=== PATIENT | male | born 1960 | race African-American/Black ===

== ENCOUNTER 2022-03-09 14:53 | Inpatient (IN) | payer OTHER ==
[2022-03-09 19:17] VITALS: BMI 30.7
[2022-03-09] MEDS ORDERED: ACETAMINOPHEN 325 MG TABLET (FP) PO PRN ×2 (21:43)
[2022-03-09] MEDS ORDERED: P-EPHED 60MG/TRIPROLIDI 2.5MG TABLET PO PRN (21:43)
[2022-03-09] MEDS ORDERED: BISMUTH SUBSALICYLATE 524 MG/30 ML PO PRN (21:43)
[2022-03-09] MEDS ORDERED: guaiFENesin 200 MG/10 ML 10 ML UNIT-DOSE CUPS PO PRN (21:43)
[2022-03-09] MEDS ORDERED: MAGNESIUM CITRATE 300 ML BOTTLE PO PRN (21:43)
[2022-03-09] MEDS ORDERED: clonazePAM 0.5 MG ODT TABLETS SL PRN (21:43)
[2022-03-09] MEDS ORDERED: BENZOCAINE/MENTHOL (CHLORASEPTIC ) LOZENGE MM PRN (21:43)
[2022-03-09] MEDS ORDERED: DICYCLOMINE HCL 10 MG CAPSULE PO PRN (21:43)
[2022-03-09] MEDS ORDERED: LOPERAMIDE HCL 2 MG CAPSULE PO PRN (21:43)
[2022-03-09] MEDS ORDERED: MAGNESIUM HYDROX 2400MG/30ML ORAL SUSPENSION 30 ML CUP PO PRN (21:43)
[2022-03-09] MEDS ORDERED: PROCHLORPERAZINE MALEATE 5 MG TABLET PO PRN (21:43)
[2022-03-09] MEDS ORDERED: NALOXONE HCL 0.4 MG/ML VIAL IM PRN (21:43)
[2022-03-09] MEDS ORDERED: cloNIDine HCL 0.1 MG TABLET PO PRN (21:43)
[2022-03-09] MEDS ORDERED: methaDONE HCL 10 MG TABLET (FOR DETOX USE ONLY) PO ONE (21:43)
[2022-03-09] MEDS ORDERED: MAG HYDROX/AL HYDROX/SIMETH 30 ML UNIT-DOSE CUP PO PRN (21:43)
[2022-03-09] MEDS ORDERED: IBUPROFEN 400 MG TABLET (FP) PO PRN (21:43)
[2022-03-10] MEDS ORDERED: methaDONE HCL 10 MG TABLET (FOR DETOX USE ONLY) PO ONE ×2 (02:05→10:00)
[2022-03-10] MEDS: methaDONE HCL 10 MG TABLET (FOR DETOX USE ONLY) PO ONE (03:15)
[2022-03-10] MEDS: MELATONIN 5 MG TABLETS PO SCH ×2 (03:22→22:23)
[2022-03-10] MEDS: THIAMINE HCL 100 MG TABLET (FP) PO SCH ×2 (03:22→22:23)
[2022-03-10] MEDS: PRENATAL VITAMINS W/ FOLIC ACID TABLET (FP) PO SCH (10:24)
[2022-03-10] MEDS: METHOCARBAMOL 500 MG TABLET PO PRN ×2 (10:26→22:25)
[2022-03-10] MEDS ORDERED: LORazepam 0.5 MG TABLET PO PRN (10:38)
[2022-03-10] MEDS: LORazepam 1 MG TABLET PO SCH ×3 (11:34→22:23)
[2022-03-10 16:20] LABS: PH,URINE 7.5 (5.0-8.0); URINE APPEARANCE CLOUDY; URINE BILIRUBIN NEGATIVE (NEGATIVE); URINE COLOR YELLOW; URINE GLUCOSE (UA) NEGATIVE (NEGATIVE); URINE KETONE NEGATIVE (NEGATIVE); URINE LEUK ESTERASE NEGATIVE (NEGATIVE); URINE NITRITE NEGATIVE (NEGATIVE); URINE PROTEIN NEGATIVE (NEGATIVE); URINE UROBILINOGEN 0.2 mg/dL (0.2-1.0)
[2022-03-11] MEDS: LORazepam 0.5 MG TABLET PO SCH ×4 (05:51→22:16)
[2022-03-11] MEDS: PRENATAL VITAMINS W/ FOLIC ACID TABLET (FP) PO SCH (10:28)
[2022-03-11] MEDS: MELATONIN 5 MG TABLETS PO SCH (22:17)
[2022-03-11] MEDS: THIAMINE HCL 100 MG TABLET (FP) PO SCH (22:17)
[2022-03-11] MEDS: METHOCARBAMOL 500 MG TABLET PO PRN (22:18)
[2022-03-12 00:10] LABS: SARS-CoV-2 NAA Not Detected (Not Detected)
[2022-03-12] MEDS ORDERED: LORazepam 0.5 MG TABLET PO ONE (05:00)
[2022-03-12] MEDS ORDERED: methaDONE HCL 10 MG TABLET (FOR DETOX USE ONLY) ONE (09:10)
[2022-03-12] MEDS: PRENATAL VITAMINS W/ FOLIC ACID TABLET (FP) PO SCH (10:21)
[2022-03-12] MEDS: amLODIPine BESYLATE 10 MG TABLET (FP) PO SCH (11:06)
[2022-03-12 11:30] LABS: HEMATOCRIT 35.8 % (35.4-49); HEMOGLOBIN 11.7 GM/dL (11.7-16.9); MCH 26.7 pg (25.7-33.7); MCHC 32.7 g/dl (32.0-35.9); MEAN CELL VOLUME 81.6 fl (80-96); MEAN PLT VOLUME 7.6 fl (7.5-11.1); PLATELET COUNT 243 10^3/uL (134-434); RBC 4.39 M/mm3 (4.00-5.60); RDW 12.6 % (11.9-15.9); WHITE BLOOD COUNT 5.7 K/mm3 (4.0-10.0)
[2022-03-12 11:49] LABS: ALBUMIN 3.6 g/dl (3.4-5.0); BLOOD UREA NITROGEN 8.9 mg/dL (7-18); CALCIUM 8.8 mg/dL (8.5-10.1)
[2022-03-12 11:52] LABS: TOT PROT 6.9 g/dl (6.4-8.2)
[2022-03-12 11:54] LABS: BILIRUBIN,TOTAL 0.8 mg/dL (0.2-1)
[2022-03-12] MEDS: ATORVASTATIN CA 40 MG TABLET (FP) PO SCH (22:40)
[2022-03-12] MEDS: MELATONIN 5 MG TABLETS PO SCH (22:40)
[2022-03-12] MEDS: THIAMINE HCL 100 MG TABLET (FP) PO SCH (22:40)
[2022-03-12] MEDS: METHOCARBAMOL 500 MG TABLET PO PRN (22:41)
[2022-03-12] MEDS: hydrOXYzine PAMOATE 25 MG CAPSULE (FP) PO PRN (22:41)
[2022-03-12] MEDS: cloNIDine HCL 0.1 MG TABLET PO PRN (22:41)
[2022-03-13] MEDS: amLODIPine BESYLATE 10 MG TABLET (FP) PO SCH (10:25)
[2022-03-13] MEDS: PRENATAL VITAMINS W/ FOLIC ACID TABLET (FP) PO SCH (10:25)
[2022-03-13] MEDS: methaDONE HCL 10 MG TABLET (FOR DETOX USE ONLY) PO ONE (10:26)
[2022-03-13] MEDS: ASCORBIC ACID 500 MG TABLET (FP) PO SCH (10:26)
[2022-03-13] MEDS: hydrOXYzine PAMOATE 25 MG CAPSULE (FP) PO PRN (19:35)
[2022-03-13] MEDS: METHOCARBAMOL 500 MG TABLET PO PRN (19:35)
[2022-03-13] MEDS: THIAMINE HCL 100 MG TABLET (FP) PO SCH (22:28)
[2022-03-13] MEDS: cloNIDine HCL 0.1 MG TABLET PO PRN (22:28)
[2022-03-13] MEDS: ATORVASTATIN CA 40 MG TABLET (FP) PO SCH (22:28)
[2022-03-13] MEDS: MELATONIN 5 MG TABLETS PO SCH (22:28)
[2022-03-14] MEDS: amLODIPine BESYLATE 10 MG TABLET (FP) PO SCH (10:14)
[2022-03-14] MEDS: PRENATAL VITAMINS W/ FOLIC ACID TABLET (FP) PO SCH (10:14)
[2022-03-14] MEDS: ASCORBIC ACID 500 MG TABLET (FP) PO SCH (10:45)
[2022-03-14 13:11] VITALS: BP 123/77; PULSE 92; TEMP 98.4
== END 2022-03-14 13:00 | disposition other institution (70) | DRG 773 ==
LOC: YASAS 14:53 → Y3N 23:25
PROVIDERS: ADMIT Allergy & Immunology; ATTEND Allergy & Immunology
PROC: HZ2ZZZZ Detoxification Services for Substance Abuse Treatment (ICD-10-PCS; principal; 2022-03-09)
DX: F11.23 Opioid dependence with withdrawal (principal); F10.230 Alcohol dependence with withdrawal, uncomplicated; I10 Essential (primary) hypertension; E78.5 Hyperlipidemia, unspecified; Z87.891 Personal history of nicotine dependence; Z86.11 Personal history of tuberculosis; Z56.0 Unemployment, unspecified; Z59.00 Homelessness unspecified
CPT/HCPCS: 36415; 71046-TC-FY; 80053; 81003; 85027; 86780; 93005; 93010; C9803-CS; J0735; U0003; U0005

== ENCOUNTER 2022-03-14 13:24 | Inpatient (IN) | payer OTHER ==
[2022-03-14] MEDS ORDERED: BENZOCAINE/MENTHOL (CHLORASEPTIC ) LOZENGE MM PRN (16:57)
[2022-03-14] MEDS ORDERED: P-EPHED 60MG/TRIPROLIDI 2.5MG TABLET PO PRN (16:57)
[2022-03-14] MEDS ORDERED: ACETAMINOPHEN 325 MG TABLET (FP) PO PRN (16:57)
[2022-03-14] MEDS ORDERED: MAG HYDROX/AL HYDROX/SIMETH 30 ML UNIT-DOSE CUP PO PRN (16:57)
[2022-03-14] MEDS ORDERED: guaiFENesin 200 MG/10 ML 10 ML UNIT-DOSE CUPS PO PRN (16:57)
[2022-03-14] MEDS ORDERED: NICOTINE 10 MG CARTRIDGE (INHALER) IH PRN (16:57)
[2022-03-14] MEDS ORDERED: IBUPROFEN 400 MG TABLET (FP) PO PRN (16:57)
[2022-03-14] MEDS ORDERED: MAGNESIUM CITRATE 300 ML BOTTLE PO PRN (16:57)
[2022-03-14] MEDS ORDERED: LOPERAMIDE HCL 2 MG CAPSULE PO PRN (16:57)
[2022-03-14] MEDS: THIAMINE HCL 100 MG TABLET (FP) PO SCH (21:22)
[2022-03-14] MEDS: MELATONIN 5 MG TABLETS PO SCH (21:22)
[2022-03-14] MEDS: ATORVASTATIN CA 40 MG TABLET (FP) PO SCH (21:22)
[2022-03-14] MEDS: MAGNESIUM HYDROX 2400MG/30ML ORAL SUSPENSION 30 ML CUP PO PRN (21:23)
[2022-03-15] MEDS ORDERED: PRENATAL VITAMINS W/ FOLIC ACID TABLET (FP) PO SCH (10:00)
[2022-03-15] MEDS: amLODIPine BESYLATE 10 MG TABLET (FP) PO SCH (10:19)
[2022-03-15] MEDS: NICOTINE 7 MG/24 HOURS TOPICAL PATCH TD SCH (10:19)
[2022-03-15] MEDS: ASCORBIC ACID 500 MG TABLET (FP) PO SCH (10:19)
[2022-03-15 11:33] LABS: HIV INTERPRETATION NEGATIVE (NEGATIVE)
[2022-03-15] MEDS: LIDOCAINE 5% TOPICAL PATCH TP SCH (16:00)
[2022-03-15] MEDS: ATORVASTATIN CA 40 MG TABLET (FP) PO SCH (21:49)
[2022-03-15] MEDS: LIDOCAINE PATCH REMOVAL MC SCH (21:49)
[2022-03-15] MEDS: METHOCARBAMOL 500 MG TABLET PO PRN (21:49)
[2022-03-15] MEDS: hydrOXYzine PAMOATE 25 MG CAPSULE (FP) PO PRN (21:50)
[2022-03-15] MEDS: THIAMINE HCL 100 MG TABLET (FP) PO SCH (21:50)
[2022-03-15] MEDS: MELATONIN 5 MG TABLETS PO SCH (21:50)
[2022-03-16] MEDS: LIDOCAINE 5% TOPICAL PATCH TP SCH (09:50)
[2022-03-16] MEDS: NICOTINE 7 MG/24 HOURS TOPICAL PATCH TD SCH (09:51)
[2022-03-16] MEDS: ASCORBIC ACID 500 MG TABLET (FP) PO SCH (09:52)
[2022-03-16] MEDS: amLODIPine BESYLATE 10 MG TABLET (FP) PO SCH (09:52)
[2022-03-16] MEDS: LIDOCAINE PATCH REMOVAL MC SCH (21:31)
[2022-03-16] MEDS: ATORVASTATIN CA 40 MG TABLET (FP) PO SCH (21:31)
[2022-03-16] MEDS: MELATONIN 5 MG TABLETS PO SCH (21:32)
[2022-03-16] MEDS: THIAMINE HCL 100 MG TABLET (FP) PO SCH (21:32)
[2022-03-17] MEDS: LIDOCAINE 5% TOPICAL PATCH TP SCH (10:07)
[2022-03-17] MEDS: amLODIPine BESYLATE 10 MG TABLET (FP) PO SCH (10:07)
[2022-03-17] MEDS: NICOTINE 7 MG/24 HOURS TOPICAL PATCH TD SCH (10:08)
[2022-03-17] MEDS: ASCORBIC ACID 500 MG TABLET (FP) PO SCH (10:08)
[2022-03-17] MEDS: THIAMINE HCL 100 MG TABLET (FP) PO SCH (21:10)
[2022-03-17] MEDS: LIDOCAINE PATCH REMOVAL MC SCH (21:10)
[2022-03-17] MEDS: ATORVASTATIN CA 40 MG TABLET (FP) PO SCH (21:10)
[2022-03-17] MEDS: MELATONIN 5 MG TABLETS PO SCH (21:10)
[2022-03-18] MEDS: METHOCARBAMOL 500 MG TABLET PO PRN ×2 (00:05→21:06)
[2022-03-18] MEDS: hydrOXYzine PAMOATE 25 MG CAPSULE (FP) PO PRN ×2 (00:06→21:06)
[2022-03-18] MEDS: amLODIPine BESYLATE 10 MG TABLET (FP) PO SCH (09:55)
[2022-03-18] MEDS: ASCORBIC ACID 500 MG TABLET (FP) PO SCH (09:56)
[2022-03-18] MEDS: LIDOCAINE 5% TOPICAL PATCH TP SCH (09:56)
[2022-03-18] MEDS: NICOTINE 7 MG/24 HOURS TOPICAL PATCH TD SCH (09:56)
[2022-03-18] MEDS: MELATONIN 5 MG TABLETS PO SCH (21:06)
[2022-03-18] MEDS: THIAMINE HCL 100 MG TABLET (FP) PO SCH (21:06)
[2022-03-18] MEDS: LIDOCAINE PATCH REMOVAL MC SCH (21:06)
[2022-03-18] MEDS: ATORVASTATIN CA 40 MG TABLET (FP) PO SCH (21:06)
[2022-03-19] MEDS: LIDOCAINE 5% TOPICAL PATCH TP SCH (09:55)
[2022-03-19] MEDS: amLODIPine BESYLATE 10 MG TABLET (FP) PO SCH (09:55)
[2022-03-19] MEDS: NICOTINE 7 MG/24 HOURS TOPICAL PATCH TD SCH (09:55)
[2022-03-19] MEDS: ASCORBIC ACID 500 MG TABLET (FP) PO SCH (09:56)
[2022-03-19] MEDS: METHOCARBAMOL 500 MG TABLET PO PRN ×2 (09:57→21:12)
[2022-03-19] MEDS ORDERED: BUPRENORPHINE/NALOXONE 2 MG/0.5 MG FILM PACKET SL ONE (13:15)
[2022-03-19] MEDS: ATORVASTATIN CA 40 MG TABLET (FP) PO SCH (21:11)
[2022-03-19] MEDS: MELATONIN 5 MG TABLETS PO SCH (21:11)
[2022-03-19] MEDS: LIDOCAINE PATCH REMOVAL MC SCH (21:11)
[2022-03-19] MEDS: THIAMINE HCL 100 MG TABLET (FP) PO SCH (21:11)
[2022-03-20] MEDS: LIDOCAINE 5% TOPICAL PATCH TP SCH (10:00)
[2022-03-20] MEDS: NICOTINE 7 MG/24 HOURS TOPICAL PATCH TD SCH (10:00)
[2022-03-20] MEDS: ASCORBIC ACID 500 MG TABLET (FP) PO SCH (10:01)
[2022-03-20] MEDS: amLODIPine BESYLATE 10 MG TABLET (FP) PO SCH (10:01)
[2022-03-20] MEDS ORDERED: BUPRENORPHINE/NALOXONE 4 MG/1 MG FILM PACKET SL ONE (11:00)
[2022-03-20] MEDS: THIAMINE HCL 100 MG TABLET (FP) PO SCH (21:08)
[2022-03-20] MEDS: hydrOXYzine PAMOATE 25 MG CAPSULE (FP) PO PRN (21:08)
[2022-03-20] MEDS: MELATONIN 5 MG TABLETS PO SCH (21:08)
[2022-03-20] MEDS: ATORVASTATIN CA 40 MG TABLET (FP) PO SCH (21:08)
[2022-03-20] MEDS: LIDOCAINE PATCH REMOVAL MC SCH (21:09)
[2022-03-21] MEDS: LIDOCAINE 5% TOPICAL PATCH TP SCH (10:01)
[2022-03-21] MEDS: NICOTINE 7 MG/24 HOURS TOPICAL PATCH TD SCH (10:01)
[2022-03-21] MEDS: amLODIPine BESYLATE 10 MG TABLET (FP) PO SCH (10:02)
[2022-03-21] MEDS: ASCORBIC ACID 500 MG TABLET (FP) PO SCH (10:02)
[2022-03-21] MEDS: BUPRENORPHINE/NALOXONE 4 MG/1 MG FILM PACKET SL SCH (10:04)
[2022-03-21] MEDS: LIDOCAINE PATCH REMOVAL MC SCH (21:47)
[2022-03-21] MEDS: ATORVASTATIN CA 40 MG TABLET (FP) PO SCH (21:48)
[2022-03-21] MEDS: THIAMINE HCL 100 MG TABLET (FP) PO SCH (21:48)
[2022-03-21] MEDS: MELATONIN 5 MG TABLETS PO SCH (21:48)
[2022-03-21] MEDS: hydrOXYzine PAMOATE 25 MG CAPSULE (FP) PO PRN (21:48)
[2022-03-22] MEDS: amLODIPine BESYLATE 10 MG TABLET (FP) PO SCH (09:57)
[2022-03-22] MEDS: BUPRENORPHINE/NALOXONE 4 MG/1 MG FILM PACKET SL SCH (09:58)
[2022-03-22] MEDS: NICOTINE 7 MG/24 HOURS TOPICAL PATCH TD SCH (09:58)
[2022-03-22] MEDS: LIDOCAINE 5% TOPICAL PATCH TP SCH (09:58)
[2022-03-22] MEDS: ASCORBIC ACID 500 MG TABLET (FP) PO SCH (09:58)
[2022-03-22] MEDS: MAGNESIUM HYDROX 2400MG/30ML ORAL SUSPENSION 30 ML CUP PO PRN (10:00)
[2022-03-22] MEDS: ATORVASTATIN CA 40 MG TABLET (FP) PO SCH (22:00)
[2022-03-22] MEDS: LIDOCAINE PATCH REMOVAL MC SCH (22:00)
[2022-03-22] MEDS: MELATONIN 5 MG TABLETS PO SCH (22:00)
[2022-03-22] MEDS: THIAMINE HCL 100 MG TABLET (FP) PO SCH (22:00)
[2022-03-23] MEDS: BUPRENORPHINE/NALOXONE 4 MG/1 MG FILM PACKET SL SCH (10:00)
[2022-03-23] MEDS: NICOTINE 7 MG/24 HOURS TOPICAL PATCH TD SCH (10:00)
[2022-03-23] MEDS: amLODIPine BESYLATE 10 MG TABLET (FP) PO SCH (10:00)
[2022-03-23] MEDS: LIDOCAINE 5% TOPICAL PATCH TP SCH (10:01)
[2022-03-23] MEDS: ASCORBIC ACID 500 MG TABLET (FP) PO SCH (10:01)
[2022-03-23] MEDS: MELATONIN 5 MG TABLETS PO SCH (21:08)
[2022-03-23] MEDS: hydrOXYzine PAMOATE 25 MG CAPSULE (FP) PO PRN (21:08)
[2022-03-23] MEDS: ATORVASTATIN CA 40 MG TABLET (FP) PO SCH (21:08)
[2022-03-23] MEDS: THIAMINE HCL 100 MG TABLET (FP) PO SCH (21:08)
[2022-03-23] MEDS: LIDOCAINE PATCH REMOVAL MC SCH (21:09)
[2022-03-24] MEDS: NICOTINE 7 MG/24 HOURS TOPICAL PATCH TD SCH (09:37)
[2022-03-24] MEDS: LIDOCAINE 5% TOPICAL PATCH TP SCH (09:37)
[2022-03-24] MEDS: BUPRENORPHINE/NALOXONE 4 MG/1 MG FILM PACKET SL SCH (09:37)
[2022-03-24] MEDS: amLODIPine BESYLATE 10 MG TABLET (FP) PO SCH (09:37)
[2022-03-24] MEDS: ASCORBIC ACID 500 MG TABLET (FP) PO SCH (09:38)
[2022-03-24] MEDS: MELATONIN 5 MG TABLETS PO SCH (21:12)
[2022-03-24] MEDS: ATORVASTATIN CA 40 MG TABLET (FP) PO SCH (21:12)
[2022-03-24] MEDS: THIAMINE HCL 100 MG TABLET (FP) PO SCH (21:12)
[2022-03-24] MEDS: LIDOCAINE PATCH REMOVAL MC SCH (21:12)
[2022-03-25] MEDS: NICOTINE 7 MG/24 HOURS TOPICAL PATCH TD SCH (09:45)
[2022-03-25] MEDS: BUPRENORPHINE/NALOXONE 4 MG/1 MG FILM PACKET SL SCH (09:45)
[2022-03-25] MEDS: ASCORBIC ACID 500 MG TABLET (FP) PO SCH (09:45)
[2022-03-25] MEDS: LIDOCAINE 5% TOPICAL PATCH TP SCH (09:45)
[2022-03-25] MEDS: amLODIPine BESYLATE 10 MG TABLET (FP) PO SCH (09:45)
[2022-03-25] MEDS: THIAMINE HCL 100 MG TABLET (FP) PO SCH (21:10)
[2022-03-25] MEDS: ATORVASTATIN CA 40 MG TABLET (FP) PO SCH (21:10)
[2022-03-25] MEDS: MELATONIN 5 MG TABLETS PO SCH (21:11)
[2022-03-25] MEDS: LIDOCAINE PATCH REMOVAL MC SCH (21:11)
[2022-03-26] MEDS: ASCORBIC ACID 500 MG TABLET (FP) PO SCH (10:01)
[2022-03-26] MEDS: amLODIPine BESYLATE 10 MG TABLET (FP) PO SCH (10:02)
[2022-03-26] MEDS: BUPRENORPHINE/NALOXONE 4 MG/1 MG FILM PACKET SL SCH ×2 (10:02→18:04)
[2022-03-26] MEDS: NICOTINE 7 MG/24 HOURS TOPICAL PATCH TD SCH (10:03)
[2022-03-26] MEDS: LIDOCAINE 5% TOPICAL PATCH TP SCH (10:03)
[2022-03-26] MEDS: LIDOCAINE PATCH REMOVAL MC SCH (22:01)
[2022-03-26] MEDS: ATORVASTATIN CA 40 MG TABLET (FP) PO SCH (22:01)
[2022-03-26] MEDS: MELATONIN 5 MG TABLETS PO SCH (22:01)
[2022-03-26] MEDS: THIAMINE HCL 100 MG TABLET (FP) PO SCH (22:01)
[2022-03-27] MEDS ORDERED: COLLOIDAL OATMEAL 1 BAR EACH TP PRN (09:44)
[2022-03-27] MEDS: amLODIPine BESYLATE 10 MG TABLET (FP) PO SCH (09:46)
[2022-03-27] MEDS: BUPRENORPHINE/NALOXONE 4 MG/1 MG FILM PACKET SL SCH ×2 (09:47→17:54)
[2022-03-27] MEDS: LIDOCAINE 5% TOPICAL PATCH TP SCH (09:47)
[2022-03-27] MEDS: NICOTINE 7 MG/24 HOURS TOPICAL PATCH TD SCH (09:47)
[2022-03-27] MEDS: ASCORBIC ACID 500 MG TABLET (FP) PO SCH (09:48)
[2022-03-27] MEDS: MINERAL OIL/PETROLAT/WATER TOPICAL CREAM 113 GM JAR TP SCH (10:52)
[2022-03-27] MEDS: ATORVASTATIN CA 40 MG TABLET (FP) PO SCH (21:13)
[2022-03-27] MEDS: THIAMINE HCL 100 MG TABLET (FP) PO SCH (21:13)
[2022-03-27] MEDS: LIDOCAINE PATCH REMOVAL MC SCH (21:13)
[2022-03-27] MEDS: MELATONIN 5 MG TABLETS PO SCH (21:13)
[2022-03-28] MEDS: MINERAL OIL/PETROLAT/WATER TOPICAL CREAM 113 GM JAR TP SCH (09:44)
[2022-03-28] MEDS: BUPRENORPHINE/NALOXONE 4 MG/1 MG FILM PACKET SL SCH ×2 (09:44→17:50)
[2022-03-28] MEDS: NICOTINE 7 MG/24 HOURS TOPICAL PATCH TD SCH (09:45)
[2022-03-28] MEDS: LIDOCAINE 5% TOPICAL PATCH TP SCH (09:45)
[2022-03-28] MEDS: ASCORBIC ACID 500 MG TABLET (FP) PO SCH (09:45)
[2022-03-28] MEDS: amLODIPine BESYLATE 10 MG TABLET (FP) PO SCH (09:45)
[2022-03-28] MEDS: METHOCARBAMOL 500 MG TABLET PO PRN ×2 (09:46→21:15)
[2022-03-28] MEDS: THIAMINE HCL 100 MG TABLET (FP) PO SCH (21:15)
[2022-03-28] MEDS: ATORVASTATIN CA 40 MG TABLET (FP) PO SCH (21:15)
[2022-03-28] MEDS: MELATONIN 5 MG TABLETS PO SCH (21:15)
[2022-03-28] MEDS: LIDOCAINE PATCH REMOVAL MC SCH (21:16)
[2022-03-29] MEDS: NICOTINE 7 MG/24 HOURS TOPICAL PATCH TD SCH (09:57)
[2022-03-29] MEDS: ASCORBIC ACID 500 MG TABLET (FP) PO SCH (09:57)
[2022-03-29] MEDS: amLODIPine BESYLATE 10 MG TABLET (FP) PO SCH (09:57)
[2022-03-29] MEDS: MINERAL OIL/PETROLAT/WATER TOPICAL CREAM 113 GM JAR TP SCH (09:57)
[2022-03-29] MEDS: LIDOCAINE 5% TOPICAL PATCH TP SCH (09:57)
[2022-03-29] MEDS: BUPRENORPHINE/NALOXONE 4 MG/1 MG FILM PACKET SL SCH ×2 (09:58→17:48)
[2022-03-29] MEDS: THIAMINE HCL 100 MG TABLET (FP) PO SCH (21:12)
[2022-03-29] MEDS: ATORVASTATIN CA 40 MG TABLET (FP) PO SCH (21:12)
[2022-03-29] MEDS: LIDOCAINE PATCH REMOVAL MC SCH (21:12)
[2022-03-29] MEDS: MELATONIN 5 MG TABLETS PO SCH (21:12)
[2022-03-29] MEDS: hydrOXYzine PAMOATE 25 MG CAPSULE (FP) PO PRN (21:13)
[2022-03-30] MEDS: ASCORBIC ACID 500 MG TABLET (FP) PO SCH (10:00)
[2022-03-30] MEDS: BUPRENORPHINE/NALOXONE 4 MG/1 MG FILM PACKET SL SCH ×2 (10:00→17:53)
[2022-03-30] MEDS: MINERAL OIL/PETROLAT/WATER TOPICAL CREAM 113 GM JAR TP SCH (10:00)
[2022-03-30] MEDS: LIDOCAINE 5% TOPICAL PATCH TP SCH (10:00)
[2022-03-30] MEDS: amLODIPine BESYLATE 10 MG TABLET (FP) PO SCH (10:00)
[2022-03-30] MEDS: NICOTINE 7 MG/24 HOURS TOPICAL PATCH TD SCH (10:00)
[2022-03-30] MEDS: MELATONIN 5 MG TABLETS PO SCH (21:25)
[2022-03-30] MEDS: METHOCARBAMOL 500 MG TABLET PO PRN (21:26)
[2022-03-30] MEDS: THIAMINE HCL 100 MG TABLET (FP) PO SCH (21:26)
[2022-03-30] MEDS: ATORVASTATIN CA 40 MG TABLET (FP) PO SCH (21:26)
[2022-03-30] MEDS: LIDOCAINE PATCH REMOVAL MC SCH (21:55)
[2022-03-31] MEDS: NICOTINE 7 MG/24 HOURS TOPICAL PATCH TD SCH (10:03)
[2022-03-31] MEDS: LIDOCAINE 5% TOPICAL PATCH TP SCH (10:03)
[2022-03-31] MEDS: MINERAL OIL/PETROLAT/WATER TOPICAL CREAM 113 GM JAR TP SCH (10:03)
[2022-03-31] MEDS: ASCORBIC ACID 500 MG TABLET (FP) PO SCH (10:05)
[2022-03-31] MEDS: BUPRENORPHINE/NALOXONE 4 MG/1 MG FILM PACKET SL SCH ×2 (10:05→17:44)
[2022-03-31] MEDS: METHOCARBAMOL 500 MG TABLET PO PRN ×2 (10:05→17:45)
[2022-03-31] MEDS: amLODIPine BESYLATE 10 MG TABLET (FP) PO SCH (10:05)
[2022-03-31] MEDS: LIDOCAINE PATCH REMOVAL MC SCH (21:49)
[2022-03-31] MEDS: ATORVASTATIN CA 40 MG TABLET (FP) PO SCH (21:49)
[2022-03-31] MEDS: MELATONIN 5 MG TABLETS PO SCH (21:49)
[2022-03-31] MEDS: THIAMINE HCL 100 MG TABLET (FP) PO SCH (21:49)
[2022-04-01] MEDS: amLODIPine BESYLATE 10 MG TABLET (FP) PO SCH (10:00)
[2022-04-01] MEDS: BUPRENORPHINE/NALOXONE 4 MG/1 MG FILM PACKET SL SCH ×2 (10:01→17:53)
[2022-04-01] MEDS: ASCORBIC ACID 500 MG TABLET (FP) PO SCH (10:01)
[2022-04-01] MEDS: LIDOCAINE 5% TOPICAL PATCH TP SCH (10:01)
[2022-04-01] MEDS: NICOTINE 7 MG/24 HOURS TOPICAL PATCH TD SCH (10:01)
[2022-04-01] MEDS: MINERAL OIL/PETROLAT/WATER TOPICAL CREAM 113 GM JAR TP SCH (10:01)
[2022-04-01] MEDS: MAGNESIUM HYDROX 2400MG/30ML ORAL SUSPENSION 30 ML CUP PO PRN (11:04)
[2022-04-01] MEDS: LIDOCAINE PATCH REMOVAL MC SCH (22:06)
[2022-04-01] MEDS: ATORVASTATIN CA 40 MG TABLET (FP) PO SCH (22:07)
[2022-04-01] MEDS: MELATONIN 5 MG TABLETS PO SCH (22:07)
[2022-04-01] MEDS: THIAMINE HCL 100 MG TABLET (FP) PO SCH (22:07)
[2022-04-02] MEDS: BUPRENORPHINE/NALOXONE 4 MG/1 MG FILM PACKET SL SCH ×2 (10:03→17:02)
[2022-04-02] MEDS: MINERAL OIL/PETROLAT/WATER TOPICAL CREAM 113 GM JAR TP SCH (10:05)
[2022-04-02] MEDS: amLODIPine BESYLATE 10 MG TABLET (FP) PO SCH (10:05)
[2022-04-02] MEDS: LIDOCAINE 5% TOPICAL PATCH TP SCH (10:05)
[2022-04-02] MEDS: NICOTINE 7 MG/24 HOURS TOPICAL PATCH TD SCH (10:05)
[2022-04-02] MEDS: ASCORBIC ACID 500 MG TABLET (FP) PO SCH (10:08)
[2022-04-02] MEDS: METHOCARBAMOL 500 MG TABLET PO PRN (10:08)
[2022-04-02] MEDS: MELATONIN 5 MG TABLETS PO SCH (21:19)
[2022-04-02] MEDS: ATORVASTATIN CA 40 MG TABLET (FP) PO SCH (21:19)
[2022-04-02] MEDS: THIAMINE HCL 100 MG TABLET (FP) PO SCH (21:19)
[2022-04-02] MEDS: hydrOXYzine PAMOATE 25 MG CAPSULE (FP) PO PRN (21:19)
[2022-04-02] MEDS: LIDOCAINE PATCH REMOVAL MC SCH (21:20)
[2022-04-03] MEDS: MINERAL OIL/PETROLAT/WATER TOPICAL CREAM 113 GM JAR TP SCH (09:46)
[2022-04-03] MEDS: NICOTINE 7 MG/24 HOURS TOPICAL PATCH TD SCH (09:46)
[2022-04-03] MEDS: LIDOCAINE 5% TOPICAL PATCH TP SCH (09:46)
[2022-04-03] MEDS: ASCORBIC ACID 500 MG TABLET (FP) PO SCH (09:47)
[2022-04-03] MEDS: BUPRENORPHINE/NALOXONE 4 MG/1 MG FILM PACKET SL SCH ×2 (09:47→17:48)
[2022-04-03] MEDS: amLODIPine BESYLATE 10 MG TABLET (FP) PO SCH (09:47)
[2022-04-03] MEDS: METHOCARBAMOL 500 MG TABLET PO PRN ×2 (09:48→21:32)
[2022-04-03] MEDS: MELATONIN 5 MG TABLETS PO SCH (21:31)
[2022-04-03] MEDS: THIAMINE HCL 100 MG TABLET (FP) PO SCH (21:31)
[2022-04-03] MEDS: ATORVASTATIN CA 40 MG TABLET (FP) PO SCH (21:31)
[2022-04-03] MEDS: LIDOCAINE PATCH REMOVAL MC SCH (21:31)
[2022-04-04 06:53] VITALS: TEMP 97.1
[2022-04-04] MEDS: MINERAL OIL/PETROLAT/WATER TOPICAL CREAM 113 GM JAR TP SCH (09:21)
[2022-04-04] MEDS: BUPRENORPHINE/NALOXONE 4 MG/1 MG FILM PACKET SL SCH (09:21)
[2022-04-04] MEDS: amLODIPine BESYLATE 10 MG TABLET (FP) PO SCH (09:21)
[2022-04-04] MEDS: LIDOCAINE 5% TOPICAL PATCH TP SCH (09:21)
[2022-04-04] MEDS: NICOTINE 7 MG/24 HOURS TOPICAL PATCH TD SCH (09:21)
[2022-04-04] MEDS: ASCORBIC ACID 500 MG TABLET (FP) PO SCH (09:22)
[2022-04-04] MEDS ORDERED: BUPRENORPHINE/NALOXONE 4 MG/1 MG FILM PACKET SL ONE (09:45)
[2022-04-04 10:37] VITALS: BP 138/79; PULSE 98
== END 2022-04-04 10:00 | disposition home or self-care (01) | DRG 772 ==
LOC: YASAS 13:24 → Y5N 13:26
PROVIDERS: ADMIT Allergy & Immunology; ATTEND Allergy & Immunology
PROC: HZ42ZZZ Group Counseling for Substance Abuse Treatment, Cognitive-Behavioral (ICD-10-PCS; principal; 2022-03-14)
DX: F11.20 Opioid dependence, uncomplicated (principal); F10.20 Alcohol dependence, uncomplicated
CPT/HCPCS: 36415; 82962; 86803; 87389